=== PATIENT | male | born 1965 | race Two or more races ===

== ENCOUNTER 2017-10-18 19:26 | Emergency (ER) | payer SELFPAY ==
[2017-10-18 19:30] VITALS: BP 133/105
--- NOTE | 2017-10-18 19:36 | ER Report ---
History and Physical Time Seen By MD: 19:29 Hx. of Stated Complaint: PATIENT BROUGHT IN BY [facility] FOR INTERMEDIATE CLEARENCE, PATIENT INTOXICATED. HPI/ROS CHIEF COMPLAINT: Assisted clearance, alcohol intoxication HISTORY OF PRESENT ILLNESS: 52-year-old male brought in by police for care home clearance. Patient appears obviously alcohol intoxicated. He admits to heavy alcohol consumption. Patient voices no injuries. Patient voices no past medical history REVIEW OF SYSTEMS: Respiratory: No cough, no dyspnea. Cardiovascular: No chest pain, no palpitations. Gastrointestinal: No vomiting, no abdominal pain. Musculoskeletal: No back pain. Allergies: Coded Allergies: No Known Drug Allergies (Unverified , 10/18/17) Home Meds No Active Prescriptions or Reported Meds Constitutional Vital Sign - Last 24 Hours 10/18/17 19:30 Temp 98.6 Pulse 115 Resp 20 B/P (MAP) 133/105 Pulse Ox 90 O2 Delivery Room Air Physical Exam General Appearance: The patient is alert, has no immediate need for airway protection and no current signs of toxicity. Vital signs stable, afebrile, pulse ox normal HEENT: Pupils equal and round no injection. TMs normal, oropharynx without dental trauma Respiratory: Chest is non tender, lungs are clear to auscultation. Cardiac: regular rate and rhythm Gastrointestinal: Abdomen is soft and non tender, no masses, bowel sounds normal. Musculoskeletal: Neck: Neck is supple and non tender. Extremities have full range of motion and are non tender. Skin: No rashes or lesions. DIFFERENTIAL DIAGNOSIS: After history and physical exam differential diagnosis was considered for care home clearance, alcohol intoxication, polysubstance abuse Medical Decision Making ED Course/Re-evaluation ED Course Patient admitted to an examination room. H&P was done. The differential diagnoses was considered. On clinical examination. Patient has normal vital signs. He voices no complaints. There is no obvious signs of injury. Patient' s medically cleared for care home admission. Decision to Disposition Date: Oct 18, 2017 Decision to Disposition Time: 19:35 Depart Departure Latest Vital Signs Vital Signs Date Time Temp Pulse Resp B/P (MAP) Pulse Ox O2 Delivery O2 Flow Rate FiO2 10/18/17 19:30 98.6 115 20 133/105 90 Room Air Impression: Primary Impression: Medical clearance for incarceration Additional Impression: Alcohol intoxication Condition: Improved [facility] New Scripts No Active Prescriptions or Reported Meds Patient Instructions: Alcohol Intoxication (ED) Additional Instructions: Medical cleared for care home admission Problem Qualifiers Additional Impression: Alcohol intoxication Complication of substance-induced condition: uncomplicated Qualified Codes: F10.920 - Alcohol use, unspecified with intoxication, uncomplicated JACOB BRENNER DO Oct 18, 2017 19:36
== END 2017-10-18 19:40 ==
LOC: ER 19:37
DX: Z02.89 Encounter for other administrative examinations (principal); F10.920 Alcohol use, unspecified with intoxication, uncomplicated
CPT/HCPCS: 99281